=== PATIENT | female | born 1980 | race Caucasian/White ===

== ENCOUNTER 2017-06-29 08:35 | Emergency (ER) | payer MEDICAID ==
[~2017-06-29] VITALS: Ht 152.4 cm; Wt 63.0 kg
[2017-06-29 08:40] VITALS: Ht 152.4 cm; Wt 63.0 kg
[2017-06-29 12:17] VITALS: BP 110/78
[2017-06-30 07:04] LABS: RAPID PLASMA REAGIN Non Reactive (Non Reactive)
== END 2017-06-29 12:17 | disposition home or self-care (01) ==
LOC: ED 08:35
PROVIDERS: Emergency Medicine
DX: R10.31 Right lower quadrant pain (principal); R10.32 Left lower quadrant pain; R11.0 Nausea
CPT/HCPCS: 87491; 87591; J0696; J1885